=== PATIENT | male | born 1970 | race Caucasian/White ===

== ENCOUNTER → 2017-03-09 | Outpatient (REF) ==
[~2017-03-09] MED LIST: FLEXERIL 1010 MG/TAB PO; LIPITOR 10MG10 MG PO; LIPITOR 80MG80 MG PO; MICARDIS80 MG PO; MOTRIN 800800 MG/TAB PO; PERCOCET 325 MG1 TA2 PO
== END ==
LOC: WSOH 14:59
DX: Z00.00 Encounter for general adult medical examination without abnormal findings (principal)

== ENCOUNTER → 2017-03-30 | Outpatient (CLI) | payer BC | LOC: COL.CARD 06:12 | DX: R07.9 Chest pain, unspecified (principal) ==

== ENCOUNTER 2017-04-10 23:56 | Emergency (ER) | payer BC ==
[~2017-04-10] VITALS: Ht 177.8 cm; Wt 102.3 kg
[2017-04-11 00:03] VITALS: TEMP 97.3
[2017-04-11] MEDS ORDERED: ZESTRIL 10MG10 MG PO (00:06)
[2017-04-11 00:37] LABS: BASO % 0.5 % (0.0-2.0); EOS # 0.1 (0.0-0.7); EOS % 1.4 % (0-4.0); GRAN # 2.9 (1.4-6.5); GRAN % 39.1 % (42.2-75.2); HEMATOCRIT 42.8 % (42.0-52.0); HEMOGLOBIN 15.2 g/dl (13.5-18.0); LYMPH # 3.9 (1.2-3.4); LYMPH % 52.7 % (20.0-51.0); MEAN CELL VOLUME 88 fl (80.0-100.0); MEAN CORPUSCULAR HEMOGLOBIN 31 pg (27.0-31.0); MEAN CORPUSCULAR HGB CONC 36 g/dl (33.0-37.0); MEAN PLATELET VOLUME 9.8 fl (7.4-10.4); MONO # 0.4 (0.1-0.6); PLATELET COUNT 231 K/mm3 (130-400); RED BLOOD COUNT 4.88 M/mm3 (4.20-5.60); REDCELL DISTRIBUTION WIDTH-CV 12.2 % (11.5-14.5); WHITE BLOOD COUNT 7.3 K/mm3 (4.8-10.8)
[2017-04-11 00:39] LABS: PROTHROMBIN TIME 11.6 SECONDS (9.7-12.8)
[2017-04-11 00:53] LABS: ALANINE AMINOTRANSFERASE 40 U/L (21-72); ALBUMIN 4.5 gm/dL (3.5-5.0); ALKALINE PHOSPHATASE 88 U/L (50-136); ANION GAP 17 mmol/L (7-16); BLOOD UREA NITROGEN 16 mg/dL (9-20); CALCIUM 9.4 mg/dL (8.4-10.2); CARBON DIOXIDE 18 mmol/L (22-30); CHLORIDE 98 mmol/L (98-107); CREATININE, serum 1.22 mg/dL (0.66-1.25); GLUCOSE 119 mg/dL (74-106); POTASSIUM 3.9 mmol/L (3.4-5.0); SODIUM 134 mmol/L (137-145); TOTAL PROTEIN 7.7 gm/dL (6.4-8.2)
[2017-04-11 01:04] LABS: B-TYPE NATRIURETIC PEPTIDE 19 pg/mL (0-125); TROPONIN-I < 0.012 ng/mL (0.000-0.034)
[2017-04-11] MEDS ORDERED: NITROSTAT0.3 MG SL (02:42)
[2017-04-11 02:53] VITALS: BP 117/66; PULSE 98
== END 2017-04-11 02:55 | disposition home or self-care (01) ==
LOC: COL.ER 23:56
PROVIDERS: Emergency Medicine
DX: R07.89 Other chest pain (principal); I10 Essential (primary) hypertension; E78.5 Hyperlipidemia, unspecified; Z98.890 Other specified postprocedural states
CPT/HCPCS: J7030

== ENCOUNTER 2019-03-20 14:15 | Emergency (ER) | payer BC, OTHER ==
[~2019-03-20] VITALS: Ht 180.3 cm; Wt 113.6 kg
[~2019-03-20 14:15] MED LIST changes: +NITROSTAT0.3 MG SL; +ZESTRIL 10MG10 MG PO
[2019-03-20 14:19] VITALS: TEMP 97.9
[2019-03-20] MEDS ORDERED: PROZAC 10MG10 MG PO (14:43)
[2019-03-20] MEDS ORDERED: COZAAR 50MG50 MG/TAB PO (14:44)
[2019-03-20] MEDS ORDERED: PAMELOR 25MG25 MG PO (14:44)
[2019-03-20] MEDS ORDERED: CRESTOR20 MG PO (14:45)
[2019-03-20] MEDS ORDERED: LOPRESSOR100 MG PO (14:45)
[2019-03-20] MEDS ORDERED: LAMISIL250 M1 (14:46)
[2019-03-20] MEDS ORDERED: TYLENOL 325MG325 MG PO (14:46)
[2019-03-20] MEDS ORDERED: ERGOCALCIFER50000 IU PO (14:46)
[2019-03-20] MEDS ORDERED: VITAMIN D31000 I1 PO (14:46)
[2019-03-20 15:25] LABS: BASO % 0.6 % (0.0-2.0); EOS # 0.1 (0.0-0.7); EOS % 0.8 % (0-4.0); GRAN # 4.3 (1.4-6.5); GRAN % 65.3 % (42.2-75.2); HEMATOCRIT 45.5 % (42.0-52.0); HEMOGLOBIN 15.5 g/dl (13.5-18.0); LYMPH # 1.7 (1.2-3.4); LYMPH % 25.2 % (20.0-51.0); MEAN CELL VOLUME 90 fl (80.0-100.0); MEAN CORPUSCULAR HEMOGLOBIN 31 pg (27.0-31.0); MEAN CORPUSCULAR HGB CONC 34 g/dl (33.0-37.0); MEAN PLATELET VOLUME 9.6 fl (7.4-10.4); MONO # 0.5 (0.1-0.6); MONO % 7.8 % (1.7-9.3); PLATELET COUNT 206 K/mm3 (130-400); RED BLOOD COUNT 5.08 M/mm3 (4.20-5.60)
[2019-03-20 15:32] LABS: ALBUMIN 5.2 gm/dL (3.5-5.0); BILIRUBIN,TOTAL 0.8 mg/dL (0.0-1.0); CALCIUM 10.5 mg/dL (8.4-10.2); CREATININE, serum 1.04 (0.66-1.25); TOTAL PROTEIN 9.2 gm/dL (6.4-8.2)
[2019-03-20] MEDS ORDERED: LYRICA 75MG CAP75 MG PO (16:08)
[2019-03-20 16:15] VITALS: BP 179/90; PULSE 91
== END 2019-03-20 16:16 | disposition home or self-care (01) ==
LOC: COL.ER 14:15
PROVIDERS: Emergency Medicine
DX: R60.0 Localized edema (principal); M79.2 Neuralgia and neuritis, unspecified; I10 Essential (primary) hypertension; F17.220 Nicotine dependence, chewing tobacco, uncomplicated; Z98.890 Other specified postprocedural states; Z90.89 Acquired absence of other organs